=== PATIENT | male | born 1955 | race Caucasian/White ===

== ENCOUNTER → 2017-11-24 15:28 | Outpatient (CLI) | payer OTHER, SELFPAY ==
--- NOTE | 2017-11-24 15:35 | RAD_ITS ---
STUDY: X-RAY - SACRUM/COCCYX REASON FOR EXAM: Male, 62 years old. Pain after falling. TECHNIQUE: 3 view(s) of the sacrum and coccyx were obtained. COMPARISON: None. FINDINGS: Normal bilateral sacroiliac joints. Normal visualized sacral ala and fused sacral bodies. Normal sacrococcygeal junction with a normal angulation. Normal coccygeal segments. The presacral soft tissue structures are unremarkable. RAD/Sacrum-Coccyx min 2 Views IMPRESSION: Normal x-rays of the sacrum and coccyx. Electronically Signed: Jaki Dos Santos MD at 23:45 EDT , Service support ,
== END ==
PROVIDERS: Family Provider Family Medicine; PCP Family Medicine; Visit Provider Family Medicine
DX: S39.92XA Unspecified injury of lower back, initial encounter (principal)
CPT/HCPCS: 72220

== ENCOUNTER → 2018-04-06 07:19 | Outpatient (CLI) | payer BC, SELFPAY ==
[2018-04-06 10:23] LABS: PSA,Total - Annual Screen 0.24 ng/mL (0.00-4.00)
[2018-04-06 10:28] LABS: Hemoglobin A1c 6.2 % (4.2-6.3)
== END ==
PROVIDERS: Family Provider Family Medicine; PCP Family Medicine; Visit Provider Family Medicine
DX: I10 Essential (primary) hypertension (principal); E11.9 Type 2 diabetes mellitus without complications; Z12.5 Encounter for screening for malignant neoplasm of prostate
CPT/HCPCS: 36415; 83036; 84153; G0103

== ENCOUNTER 2018-05-13 22:20 | Emergency (ER) | payer BC, SELFPAY ==
[2018-05-13 22:21] VITALS: BP 161/70; PULSE 77; RESP 15; TEMP 36.8; BMI 47.3
--- NOTE | 2018-05-13 23:04 | EKG12_ITS ---
Test Reason : UPPER EXTREMITY Blood Pressure : / mmHG Vent. Rate : 076 BPM Atrial Rate : 076 BPM P-R Int : 256 ms QRS Dur : 128 ms QT Int : 396 ms P-R-T Axes : 018 -53 081 degrees QTc Int : 445 ms Sinus rhythm with 1st degree A-V block Left axis deviation Left ventricular hypertrophy with QRS widening and repolarization abnormality Cannot rule out Septal infarct , age undetermined Abnormal ECG Confirmed by DEVANTE LIU, YONY ([id number]), department editor NBA LOPEZ ([id number]) on 05/15/2018 3:43:33 PM Referred By: NIEVES Confirmed By:YONY LOW MD
[2018-05-13] MEDS: DiphenhydrAMINE 25 MG Capsule PO (23:31)
--- NOTE | 2018-05-14 00:24 | ED.DCSUM_ITS ---
- ER Visit Summary Date of Service: 05/14/18 Chief Complaint: Bee sting History of Present Illness: The patient is a 62 M presenting for evaluation after a bee sting. Patient reports that this afternoon he was stung in the left side of the chest by what he thought was a black wasp. Patient reports that he initially felt okay, and went on with the rest of his day after putting some ice over the area. He reports that this evening however he started to develop some pain that was going down his left arm. He reports that he had some generalized myalgias and a mild headache associated with this but denies any chest pain shortness of breath worsening with exertion or any other associated symptoms. He denies that he had any sort of prior allergies to bee stings. Review of systems otherwise negative. Physical Examination: Vital signs within normal limits. Well-nourished obese male no acute distress. Head normocephalic. Oropharynx clear no evidence of lip or tongue swelling, posterior oropharynx is normal. Neck is supple. Heart regular rate and rhythm with occasional extrasystoles. Lung sounds clear. Abdomen soft and nontender. Extremities were nontender to palpation with active full range of motion of the upper and lower extremities. 2+ radial pulses that are bilaterally symmetric, 2+ edema of the lower extremities bilaterally. Examination the patient's left chest shows about a 6 cm area of urticaria without any evidence of retained mouth parts. Test Results: EKG demonstrates sinus rhythm at 76 with first-degree AV block ID interval of 256. There is LVH morphology. No evidence of acute ischemia or arrhythmia. Emergency Department Course and Treatment: Patient presented for evaluation secondary to symptoms after bee sting. Due to the pain in his left arm there was at least a mild concern for the possibility of a cardiac equivalent so I performed an EKG, this was found to be within normal limits, I do not believe that further workup is necessary. Patient was given Benadryl repeat evaluation he had improvement. At this point I believe patient can safely be discharged. He will follow-up with primary care as needed. Disposition: Discharge Impression: 1. Localized reaction to bee sting This note was generated with [employer] software. It may contain incorrect words, spelling, and punctuation that were not noted in review of the chart prior to signing ED Disposition - Plan for ED Patient: Disposition: Home or Assisted Living Chief Complaint: Upper Extremity Injury Diagnosis: Bee sting Instructions: ED Bite Sting Insect Local Allergic React Referrals: Efrain Mccartney MD [Primary Care Provider] - As Needed
[2018-05-14 00:30] VITALS: PULSE 72; RESP 21; O2SAT 96
== END 2018-05-14 00:31 | disposition home or self-care (01) ==
PROVIDERS: Emergency Provider Emergency Medicine; Family Provider Family Medicine; PCP Family Medicine
DX: T63.441A Toxic effect of venom of bees, accidental (unintentional), initial encounter (principal); L50.0 Allergic urticaria; E66.9 Obesity, unspecified; E11.9 Type 2 diabetes mellitus without complications; I10 Essential (primary) hypertension; Z79.84 Long term (current) use of oral hypoglycemic drugs; Z79.82 Long term (current) use of aspirin; Z79.899 Other long term (current) drug therapy; Y92.89 Other specified places as the place of occurrence of the external cause
CPT/HCPCS: 93005; 99282

== ENCOUNTER 2018-09-02 14:03 | Emergency (ER) | payer BC, SELFPAY ==
[2018-09-02 14:04] VITALS: BP 158/85; PULSE 98; RESP 16; TEMP 35.9; O2SAT 95; BMI 47.3
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
== END 2018-09-02 16:16 | disposition home or self-care (01) ==
PROVIDERS: Emergency Provider Emergency Medicine; Family Provider Family Medicine; PCP Family Medicine
DX: S16.1XXA Strain of muscle, fascia and tendon at neck level, initial encounter (principal); S39.012A Strain of muscle, fascia and tendon of lower back, initial encounter; E11.9 Type 2 diabetes mellitus without complications; I10 Essential (primary) hypertension; Z79.82 Long term (current) use of aspirin; Z79.84 Long term (current) use of oral hypoglycemic drugs; Z79.899 Other long term (current) drug therapy; V43.52XA Car driver injured in collision with other type car in traffic accident, initial encounter; Y93.I9 Activity, other involving external motion; Y92.410 Unspecified street and highway as the place of occurrence of the external cause; Y99.8 Other external cause status
CPT/HCPCS: 72040; 72100; 99282

== ENCOUNTER → 2018-11-22 07:35 | Outpatient (CLI) | payer BC, SELFPAY ==
[2018-11-22 10:03] LABS: Absolute Lymphocyte Count 2.62 X10^3/ul (0.83-4.51); Absolute Neutrophil Count 4.8 X10^3/uL (2.0-7.7); Basophil# 0.04 X10^3/uL; Basophil% 0.5 % (0-1); Color, Urine Yellow (Yellow); Eosinophil# 0.19 X10^3/uL; Eosinophils% 2.3 % (0-5); Glucose, Dipstick Normal (Normal); Hematocrit 39.4 % (40-54); Hemoglobin 13.6 g/dl (13.0-16.5); Ketone-Dipstick 5 mg/dl (Negative); Leukocyte Esterase-Dipstick 25 /ul (Negative); Lymphocyte # 2.62 X10^3/ul (4.0); Lymphocyte % 31.8 % (19-41); Mean Corp Hgb Conc 34.5 g/gl (32-36); Mean Corpuscular Hgb 30.6 pg (27.0-32.0); Mean Corpuscular Volume 88.5 fL (80-94); Monocyte# 0.63 X10^3/uL; Monocyte% 7.6 % (0-10); Neutrophil # 4.75 X10^3/uL (2.7-7.7); Neutrophil % 57.6 % (47-70); Nitrite-Dipstick Negative (Negative); Occult Blood-Urine Negative /ul (Negative); Platelet Count 237 K/mm3 (150-450); Protein-Dipstick 30 mg/dl (Negative); RBC Distribution Width SD 41.7 fl (35.1-43.9); Red Blood Count 4.45 M/mm3 (4.6-6.2); Urine Bilirubin Dipstick 1 mg/dL (Negative); Urine Clarity Sl. Cloudy (Clear); Urine Urobilinogen 1 mg/dl (Normal); White Blood Count 8.3 K/mm3 (4.4-11.0)
[2018-11-22 10:04] LABS: POSITIVE COUNT NO; POSITIVE DIFFERENTIAL NO; POSITIVE MORPHOLOGY NO
[2018-11-22 10:27] LABS: ALB/GLOB Ratio 0.8 RATIO (0.9-2.4); AST(SGOT) 21 U/L (15-37); Alanine Aminotransfer ALT/SGPT 41 U/L (16-61); Albumin, Serum 3.4 g/dL (3.2-5.0); Alkaline Phosphatase 73 U/L (45-117); Anion Gap 8 (5-15); BUN 11 mg/dL (7-18); BUN/Creat Ratio 12.5 RATIO (10-20); Calcium,Total 8.5 mg/dL (8.5-10.1); Chloride 104 mmol/L (98-107); Cholesterol 141 mg/dL (200); Creatinine, Serum 0.88 mg/dL (0.70-1.30); EST Glomerular Filtration Rate 93 mL/min (>60); Est Glom Filt Rate - Afr Amer 113 mL/min (>60); Glucose 134 mg/dL (74-106); High Density Lipoprotein 38 mg/dL; PSA,Total - Annual Screen 0.22 ng/mL (0.00-4.00); Potassium 3.8 mmol/L (3.5-5.1); Protein, Total 7.4 g/dL (6.4-8.2); Sodium Level 138 mmol/L (136-145); Triglycerides 125 mg/dL; Very Low Density Lipoprotein 25 mg/dL (5-40)
[2018-11-22 12:28] LABS: Hemoglobin A1c 6.7 % (4.2-6.3)
== END ==
PROVIDERS: Family Provider Family Medicine; PCP Family Medicine; Referring Provider Family Medicine; Visit Provider Family Medicine
DX: Z00.00 Encounter for general adult medical examination without abnormal findings (principal); I10 Essential (primary) hypertension; E11.9 Type 2 diabetes mellitus without complications; Z12.5 Encounter for screening for malignant neoplasm of prostate
CPT/HCPCS: 36415; 80053; 80061; 81002; 83036; 84153; 85025; G0103

== ENCOUNTER 2018-12-29 21:40 | Emergency (ER) | payer BC, SELFPAY ==
[2018-12-29 21:42] VITALS: BP 137/80; PULSE 110; RESP 28; TEMP 36.9; O2SAT 99; BMI 47.5
--- NOTE | 2018-12-29 21:50 | ED.RN ---
RN CALLED FOR EKG, PULLED OLD EKGS FOR
--- NOTE | 2018-12-29 21:51 | ED.RN ---
notified riya of pt condition per pt request. riya states she is on her way up to the er
[2018-12-29 22:00] VITALS: BP 137/80; PULSE 89; RESP 24; O2SAT 100
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
--- NOTE | 2018-12-29 22:03 | EKG12_ITS ---
Test Reason : SEIZURE Blood Pressure : / mmHG Vent. Rate : 101 BPM Atrial Rate : 101 BPM P-R Int : 232 ms QRS Dur : 110 ms QT Int : 338 ms P-R-T Axes : 037 -50 090 degrees QTc Int : 438 ms Sinus tachycardia with 1st degree A-V block with occasional Premature ventricular complexes Left anterior fascicular block T wave abnormality, consider lateral ischemia Abnormal ECG Confirmed by DEVANTE LIU, YONY ([id number]), features editor TRISTAN FLORES () on 01/02/2019 1:19:56 PM Referred By: CAR[place] Confirmed By:YONY LOW MD
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
[2018-12-29 23:05] LABS: Absolute Lymphocyte Count 1.77 X10^3/ul (0.83-4.51); Absolute Neutrophil Count 11.9 X10^3/uL (2.0-7.7); Basophil# 0.03 X10^3/uL; Basophil% 0.2 % (0-1); Eosinophil# 0.09 X10^3/uL; Eosinophils% 0.6 % (0-5); Hematocrit 35.6 % (40-54); Hemoglobin 12.6 g/dl (13.0-16.5); Lymphocyte # 1.77 X10^3/ul (4.0); Lymphocyte % 12.1 % (19-41); Mean Corp Hgb Conc 35.4 g/gl (32-36); Mean Corpuscular Hgb 30.7 pg (27.0-32.0); Mean Corpuscular Volume 86.6 fL (80-94); Mean Platelet Vol. 8.9 fl (6.2-12.0); Monocyte% 5.5 % (0-10); Neutrophil # 11.91 X10^3/uL (2.7-7.7); Neutrophil % 81.3 % (47-70); Platelet Count 201 K/mm3 (150-450); RBC Distribution Width CV 12.9 % (11.6-14.6); RBC Distribution Width SD 40.8 fl (35.1-43.9); Red Blood Count 4.11 M/mm3 (4.6-6.2); White Blood Count 14.7 K/mm3 (4.4-11.0)
[2018-12-29 23:06] LABS: POSITIVE COUNT NO; POSITIVE DIFFERENTIAL NO; POSITIVE MORPHOLOGY NO
[2018-12-29 23:11] LABS: Partial Thromboplast Time 23.8 Seconds (24.1-36.2)
[2018-12-29 23:11] LABS: Bacteria 0 SEEN /hpf (None Seen); White Blood Cells 0 SEEN /hpf (0-5)
[2018-12-29 23:15] LABS: Color, Urine Yellow (Yellow); Glucose, Dipstick Normal (Normal); Ketone-Dipstick 5 mg/dl (Negative); Leukocyte Esterase-Dipstick Negative /ul (Negative); Nitrite-Dipstick Negative (Negative); Occult Blood-Urine 10 /ul (Negative); Protein-Dipstick 30 mg/dl (Negative); Urine Bilirubin Dipstick Negative (Negative); Urine Clarity Sl. Cloudy (Clear); Urine Urobilinogen Normal (Normal)
[2018-12-29 23:17] VITALS: BP 125/75; PULSE 71; RESP 18; O2SAT 97
[2018-12-29 23:21] LABS: Amorphous Sediment 1+
[2018-12-29 23:22] LABS: Hyaline Cast 0-5 SEEN /lpf (0-5); Mucous, Urine 1+ /hpf (<or=2+); Red Blood Cells-Urine 0-5 SEEN /hpf (0-5)
[2018-12-29 23:23] LABS: Squamous Epithelial Cells - UA 0-5 SEEN /hpf (0-5)
[2018-12-29 23:42] LABS: AST(SGOT) 38 U/L (15-37); Alanine Aminotransfer ALT/SGPT 43 U/L (16-61); Albumin, Serum 3.4 g/dL (3.2-5.0); Alkaline Phosphatase 73 U/L (45-117); Anion Gap 7 (5-15); BUN 10 mg/dL (7-18); Calcium,Total 8.1 mg/dL (8.5-10.1); Chloride 103 mmol/L (98-107); Creatinine, Serum 0.91 mg/dL (0.70-1.30); EST Glomerular Filtration Rate 90 mL/min (>60); Est Glom Filt Rate - Afr Amer 109 mL/min (>60); Globulin 3.4 g/dL (2.2-4.2); Glucose 189 mg/dL (74-106); Potassium 4.2 mmol/L (3.5-5.1); Protein, Total 6.8 g/dL (6.4-8.2); Sodium Level 136 mmol/L (136-145)
[2018-12-29 23:43] LABS: Lactic Acid 2.8 mmol/L (0.4-2.0)
--- NOTE | 2018-12-29 23:44 | ED.RN ---
lab called with critical lab results. Lactic acid 2.8. Dr. Aguilar made aware no new orders at this time
[2018-12-29] MEDS: levETIRAcetam IV 1,000 MG/100 ML BAG 400 MG IV (23:56)
[2018-12-29 23:59] VITALS: BP 127/72; PULSE 62; RESP 18; O2SAT 100
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
[2018-12-30 00:46] VITALS: BP 127/72; PULSE 69; RESP 18; TEMP 36.7; O2SAT 100
[2018-12-30] MEDS: 0.9% Normal Saline 1,000 ML 1000 ML IV (00:47)
[2018-12-30 03:14] LABS: Reflex Lactate? Y
== END 2018-12-30 01:33 | disposition short-term general hospital (02) ==
PROVIDERS: Emergency Provider Emergency Medicine; Family Provider Family Medicine; PCP Family Medicine
DX: G93.89 Other specified disorders of brain (principal); G40.409 Other generalized epilepsy and epileptic syndromes, not intractable, without status epilepticus; E66.9 Obesity, unspecified; E11.9 Type 2 diabetes mellitus without complications; I10 Essential (primary) hypertension; Z79.84 Long term (current) use of oral hypoglycemic drugs; Z79.899 Other long term (current) drug therapy
CPT/HCPCS: 70450; 71045; 80053; 81001; 83605; 84484; 85025; 85610; 85730; 93005; 96361; 96365; 99285; J7030; A4216

== ENCOUNTER 2019-03-15 09:18 | Outpatient (RCR) | payer BC, SELFPAY ==
[2019-03-15 10:13] VITALS: BP 140/77; PULSE 77; RESP 18; TEMP 36.6; BMI 44.1
--- NOTE | 2019-03-15 10:51 | PCM.WC.HP ---
(1) Lymphedema Status: Chronic Current Visit: Yes Code(s): I89.0 - Lymphedema, not elsewhere classified (2) Type 2 diabetes mellitus Status: Acute Current Visit: Yes Code(s): E11.9 - Type 2 diabetes mellitus without complications History of Present Illness Date of Service: 03/15/19 Chief Complaint: Bilateral lower extremity lymphedema History of Wound: Mr. Rabago is here for management of his bilateral lower extremity lymphedema. Chronic history of lymedema and has been utilizing his compression stockings however admits that he is not as compliant. He sits/stands for long hours at a time. No open wounds or ulcers at this time. He was referred here by his primary care physicain for short term compression managemt. Past Medical History Past Medical History: Chronic Problems Lymphedema (Chronic) Surgical History: tonsillectomy Allergies/Adverse Reactions: Allergies ciprofloxacin [From Cipro] Adverse Reaction (Verified 12/29/18 21:49) Itching Home Medications: Ambulatory Orders Medication Instructions Recorded Aspirin [Aspirin, Baby] 81 mg PO DAILY 04/08/15 Losartan/Hydrochlorothiazide 1 tab PO DAILY 04/08/15 [Hyzaar 100-25 Tablet] Metoprolol Succinate [Toprol Xl] 50 mg PO DAILY 05/13/18 Sitagliptin Phos/Metformin HCl 50 mg PO QHS 05/13/18 [Janumet 50-500 mg Tablet] - Family History Maternal No pertinent history Smoking Status: Never smoker Review of Systems Constitutional: Denies: Anorexia, Chills, Fever Eyes: Denies: Blurred vision, Pain, Redness HEENT: Denies: Difficulty Hearing, Difficulty Swallowing Cardiovascular: Denies: Chest Pain, Chest Pressure Respiratory: Denies: Hemoptysis Gastrointestinal: Denies: Abdominal Pain, Hematemesis, Vomiting Skin: Denies: Jaundice - Physical Exam Vital Signs Temp Pulse Resp BP 97.8 F 77 18 140/77 H 03/15/19 10:13 03/15/19 10:13 03/15/19 10:13 03/15/19 10:13 General: Alert, Oriented x3, Cooperative, No apparent distress HEENT: Atraumatic, Normocephalic Oral: Moist Mucosa Neck: Supple Lungs: Normal air movement Cardiovascular: Regular rate, Regular Rhythm, Normal S1, Normal S2 Abdomen: Soft, Non Tender, Obese Extremities: No cyanosis Wound Measurements and Assessment WC - Nurse 1 - General Ulcer Measurement Start: 03/15/19 10:10 Freq: Status: Active Protocol: Activity Type Activity Date Activity User E-Sign Co-Sign Detail Recorded Client Recorded Date Recorded By Document 03/15/19 10:13 [id number] 03/15/19 10:25 03/15/19 10:13 Wound Center Nurse 1 [Edema Assessment] -Lower Limb Edema Present Yes -Right Calf (cm) 47.0 -Right Ankle (cm) 31.0 -Left Calf (cm) 49.2 -Left Ankle (cm) 35.5 Musculoskeletal: No Muscle Wasting Neurological: Cranial nerves II-XII grossly intact Psych/Mental Status: Normal Affect Debridement Note No debridement was completed today Assessment/Plan Active Problems Lymphedema (Chronic) Type 2 diabetes mellitus (Acute) Assessment: Same as above. Plan: No debridement completed today. No open wound/ulcer. Chronic lyphedema. Not very compliant with his ocmpression stockings because he says he does not want it to cut his circulaion. Has not been to a lymph edema clinic in the past. Advised that lomg term, this would be a better option for him. Also recommended Circaids for better ease of use, he is open to this. 3M wraps applied today. leave on for a week. Continue Diabetic foot care and optimal diabetes control. Elevate lower extremities when seated and in bed. Exercise and amie loss also beneficial to management. All his questions were answered and he was advised to call with any further questions or concerns.
== END 2019-03-28 23:59 ==
LOC: WC 09:18
PROVIDERS: Family Provider Family Medicine; PCP Family Medicine; Visit Provider Internal Medicine
DX: I89.0 Lymphedema, not elsewhere classified (principal); E11.9 Type 2 diabetes mellitus without complications
CPT/HCPCS: 29581; 99213; G0463

== ENCOUNTER 2019-03-23 16:49 | Emergency (ER) | payer BC, SELFPAY ==
[2019-03-23 16:51] VITALS: BP 126/64; PULSE 89; RESP 16; TEMP 36.7; O2SAT 97; BMI 44.4
--- NOTE | 2019-03-23 17:04 | ED.VISSUMM ---
- ER Visit Summary Date of Service: 03/23/19 Chief Complaint: Left lower rib pain History of Present Illness: The patient is a 63 M who has left lower rib pain. He jumped off of a trailer about 12 to 18 inches. He states he continued rolling forward in his left arm got caught underneath him. He now has pain in the left lower rib. Denies any head trauma or LOC. Nothing makes the pain better or worse. He took no medications for this at home. Denies any other injuries. Physical Examination: Vital signs reviewed. HEENT exam atraumatic. Heart is regular rate rhythm. Lungs are clear to auscultation bilaterally. His chest is mildly tender in the left lower rib area. There are no step-offs. Abdomen soft nontender. Neurologic exam normal. Test Results: Left rib x-rays are normal per radiology Emergency Department Course and Treatment: Patient declined any pain medications. X-rays are negative for fractures. Patient will ice and use Tylenol for pain at home. He will follow-up with his Treatment Plan: [] Disposition: Discharge Impression: Left rib contusion This note was generated with [employer] dictation software. It may contain incorrect words, spelling, and punctuation that were not noted in review of the chart prior to signing ED Disposition - Plan for ED Patient: Referrals: Efrain Mccartney MD [Primary Care Provider] -
--- NOTE | 2019-03-23 17:20 | RAD_ITS ---
STUDY: X-RAY - UNILATERAL RIBS ( LEFT ) WITH CHEST REASON FOR EXAM: Male, 63 years old. Fall, chest pain. TECHNIQUE - RIBS: 4 view(s) of the ribs. TECHNIQUE - CHEST: Single PA view of the chest. COMPARISON: 12/29/2018 FINDINGS - RIBS: Normal visualized ribs without a demonstrated fracture. FINDINGS - CHEST: The lungs are clear and expanded. There is no demonstrated pleural abnormality. Normal size heart. Normal mediastinum and sid. Normal visualized pulmonary arteries. Normal visualized aortic arch and descending thoracic aorta. Normal visualized thoracic spine. Normal visualized ribs, clavicles, and shoulders. There is no demonstrated abnormality of the visualized soft tissue structures of the upper abdomen. RAD/Ribs Uni Min 3V w/PA Chest IMPRESSION: RIBS: Normal x-ray examination of the ribs. CHEST: Normal x-ray examination of the chest. Electronically Signed: Costa Rivers MD at 17:44 EDT Tel , Service support ,
--- NOTE | 2019-03-23 17:58 | ED.DEP ---
ED Disposition - Plan for ED Patient: Disposition: Home or Assisted Living Instructions: Rib Contusion Referrals: Efrain Mccartney MD [Primary Care Provider] -
[2019-03-23 18:13] VITALS: BP 117/67; PULSE 63; RESP 16; O2SAT 97
== END 2019-03-23 18:14 | disposition home or self-care (01) ==
PROVIDERS: Emergency Provider Emergency Medicine; Family Provider Family Medicine; PCP Family Medicine
DX: S20.212A Contusion of left front wall of thorax, initial encounter (principal); W17.89XA Other fall from one level to another, initial encounter; Y93.89 Activity, other specified; Y92.89 Other specified places as the place of occurrence of the external cause; Y99.8 Other external cause status
CPT/HCPCS: 71101; 99282

== ENCOUNTER 2019-06-01 10:55 | Outpatient (RCR) | payer BC, SELFPAY ==
[2019-03-29 01:15] VITALS: TEMP 36.6
[2019-06-01 11:23] VITALS: BP 143/76; PULSE 65; RESP 16; BMI 45.1
--- NOTE | 2019-06-01 12:44 | PCM.WC.HP ---
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 Rabago is here for management of his bilateral lower extremity lymphedema. Chronic history of lymedema and has been unable to fit into his compression stockings. Patient is noncompliant and is here only to get his 3M wraps on his legs but he never follows up. Patient was seen approximately [address] Huitron and never returned and refused to follow-up with the lymphedema clinic. No open wounds or ulcers at this time. He was referred here by his primary care physicain for short term compression managemt. Past Medical History Past Medical History: Chronic Problems Lymphedema (Chronic) Surgical History: tonsillectomy Allergies/Adverse Reactions: Allergies ciprofloxacin [From Cipro] Adverse Reaction (Verified 06/01/19 11:45) Itching Home Medications: Ambulatory Orders Medication Instructions Recorded Losartan/Hydrochlorothiazide 1 tab PO DAILY 04/08/15 [Hyzaar 100-25 Tablet] Sitagliptin Phos/Metformin HCl 2 tablet PO QHS 05/13/18 [Janumet 50-500 mg Tablet] Dexamethasone 12 mg PO DAILY 03/23/19 Metformin HCl 500 mg PO DAILY 03/23/19 levETIRAcetam tablet [Keppra 1,000 mg PO BID 03/23/19 tablet] - Family History Maternal No pertinent history Smoking Status: Never smoker Review of Systems Constitutional: Denies: Chills, Fever Eyes: Denies: Blurred vision, Drainage, Pain HEENT: Denies: Difficulty Hearing, Difficulty Swallowing, Sore Throat, Visual Changes Cardiovascular: Denies: Chest Pain, Palpitations, Syncope Respiratory: Denies: Cough, Shortness of Breath Gastrointestinal: Denies: Abdominal Pain, Nausea, Vomiting Genitourinary: Denies: Dysuria, Frequency Musculoskeletal: Denies: Joint Pain, Muscle pain Skin: Denies: Jaundice, Rash Neurological: Denies: Balance problems, Change in Speech, Difficulty swallowing, Focal weakness Psychiatric: Denies: Anxiety, Depression Endocrine: Denies: Change in Body Habitus Hematologic/ Lymphatic: Denies: Adenopathy - Physical Exam Vital Signs Pulse Resp BP 65 16 143/76 H 06/01/19 11:23 06/01/19 11:23 06/01/19 11:23 General: Oriented x3, Cooperative, Well developed HEENT: Atraumatic, PERRLA Oral: Moist Mucosa Neck: Supple, No JVD Lungs: Clear to auscultation, Normal air movement Cardiovascular: Regular rate, Regular Rhythm Abdomen: Bowel Sounds Present, Soft, Non Tender, No Hepato-splenomegaly Extremities: No clubbing, Edema Skin: No rashes, No breakdown Wound Measurements and Assessment WC - Nurse 1 - General Ulcer Measurement Start: 06/01/19 11:17 Freq: Status: Active Protocol: Activity Type Activity Date Activity User E-Sign Co-Sign Detail Recorded Client Recorded Date Recorded By Document 06/01/19 11:23 BM [id number] 06/01/19 11:33 [facility] 06/01/19 11:23 Wound Center Nurse 1 [Edema Assessment] -Lower Limb Edema Present Yes -Right Calf (cm) 48 -Right Ankle (cm) 33.3 -Left Calf (cm) 50.9 -Left Ankle (cm) 36.6 WC - Nurse 2 - General Ulcer CM Notes Start: 06/01/19 11:17 Freq: Status: Active Protocol: Activity Type Activity Date Activity User E-Sign Co-Sign Detail Recorded Client Recorded Date Recorded By Document 06/01/19 11:57 MW [id number] 06/01/19 11:58 MW 06/01/19 11:57 Pain Scale: 0-10 Numeric [Pain] -Is Patient Pain Free? Yes Musculoskeletal: No Tenderness to Palpation of Joints or Extremities Lymphatic: No Cervical, Supraclavicular, or Inguinal Adenopathy Neurological: Cranial nerves II-XII grossly intact, Neuro grossly intact Psych/Mental Status: Normal Affect, Appropriate Debridement Note Post-Debridement Measurements/Treatment WC - Nurse 2 - General Ulcer CM Notes Start: 06/01/19 11:17 Freq: Status: Active Protocol: Activity Type Activity Date Activity User E-Sign Co-Sign Detail Recorded Client Recorded Date Recorded By Document 06/01/19 11:57 MW [id number] 06/01/19 11:58 MW 06/01/19 11:57 Pain Scale: 0-10 Numeric Is Patient Pain Free? Yes No debridement was completed today Assessment/Plan Active Problems Type 2 diabetes mellitus (Acute) Assessment: Same as above. Plan: No debridement completed today. No open wound/ulcer. Chronic lyphedema. Not very compliant with his ocmpression stockings because he says he does not want it to cut his circulaion. Has not been to a lymph edema clinic in the past. Advised that lomg term, this would be a better option for him. Also recommended Circaids for better ease of use, he is open to this. Dylan wraps applied today. Follow-up with the lymphedema clinic and advised that we do not see lymphedema only if they have wounds.
== END 2019-06-28 23:59 ==
LOC: WC 10:55
PROVIDERS: Family Provider Family Medicine; PCP Family Medicine; Visit Provider Nurse Practitioner
DX: I89.0 Lymphedema, not elsewhere classified (principal); E11.9 Type 2 diabetes mellitus without complications; Z91.19 Patient's noncompliance with other medical treatment and regimen; Z79.899 Other long term (current) drug therapy; Z79.84 Long term (current) use of oral hypoglycemic drugs
CPT/HCPCS: 99213; G0463

== ENCOUNTER 2019-06-05 07:14 | Emergency (ER) | payer BC, SELFPAY ==
[2019-06-05 07:15] VITALS: BP 124/71; PULSE 64; RESP 18; TEMP 36.6; O2SAT 97; BMI 48.4
--- NOTE | 2019-06-05 07:32 | MRI_ITS ---
STUDY: MRI BRAIN WITH AND WITHOUT CONTRAST REASON FOR EXAM: Male, 63 years old. Left leg weakness upon waking this morning. History of brain tumor removal on 01/05/2019. TECHNIQUE: Standardized multiplanar fat and water weighted pulse sequences were obtained. IV Dotarem 30 was administered for the contrast portion of the examination. Motion degradation artifacts in several of the images due to patient's inability to cooperate. COMPARISON: Preoperative CT head scan 12/29/2018. No prior pre and postoperative MRI brain scans for comparison. No prior postop CT head scan for comparison. FINDINGS: Interval left craniotomy. Large rim enhancing mass along the inferior horn of the right lateral ventricle and extending laterally into the enhancing jefferson of the surgical cavity of the right temporal lobe. There is moderate amount of surrounding vasogenic edema involving the right temporal lobe, right occipital lobe and right parietal lobe. There is approximately 8.3 mm right the left midline shift of the septum pellucidum. There is minimal downward transtentorial herniation into the right posterior ambient wing cistern. This accounts for the mild deformity of the right lateral surface of the midbrain. The vasogenic edema extends across the splenium of the corpus callosum. No communicating or noncommunicating hydrocephalus. Normal bilateral basal ganglia. Normal thalami. There is no extra-axial fluid accumulation. Normal flow voids within the major intracranial circulation suggesting patency by spin echo criteria. Normal venous enhancement. Normal sella turcica, pituitary gland, infundibular stalk, optic chiasm and hypothalamus. Normal tectal plate and pineal gland. Minimal deformity in the right lateral surface of the midbrain due to mild transtentorial herniation and surrounding fascial edema. Normal yaneth and medulla. Normal cerebellum. Normal remaining basal cisterns. Normal bilateral temporal bones. Normal bilateral internal auditory canals. No demonstrated orbital abnormality, within the constraints of a routine brain study. Normal visualized paranasal sinuses. Right craniotomy defect. Normal skull base. Normal visualized soft tissue structures. Normal visualized upper cervical spine. MRI/Brain W/WO Contrast IMPRESSION: 1. Very large rim-enhancing mass occupying the inferior horn of right lateral ventricle and extending laterally to the rim-enhancing jefferson of the surgical cavity in the right temporal lobe with extensive surrounding vasogenic edema. The vasogenic edema also extends across the splenium of the corpus callosum. This is from known malignant brain neoplasm. Please correlate with the pathology report for exact type of brain neoplasm since there has been interval brain surgery. 2. Progression of right brain neoplasm when compared to preoperative CT head scan of 12/29/2018. Postop interval changes cannot be determined without postop MRI head scans for comparison. 3. 8.3 mm right to left midline shift and minimal downward transtentorial herniation causing deformity of the right ambient wing cistern and deformity in the right lateral surface of the midbrain. Electronically Signed: Curtis Lagunas MD at 10:10 EDT , Service support ,
--- NOTE | 2019-06-05 07:32 | ED.RN ---
SLIGHT LEFT FACIAL DROOP NOTED IN SMILE. STATES SHE ALWAYS THROUGHT HIS SMILE WAS A LITTLE OFF BUT NOT SURE OF IT IS NEW OR MORE. HOWEVER REPORTS NOTICED LEFT EYE MORE SQUEENTY THAN NORMAL FOR LAST FEW DAYS. BRAIN TUMOR ON RIGHT SIDE BRAIN. ABLE TO LIFT LEFT LEG AGAINST GRAVITY BUT DOES HAVE SOME DROP WITHIN [address] BASURTO AT BEDSIDE.
--- NOTE | 2019-06-05 07:34 | ED.RN ---
PT REPORTS HAVING LUCAS YESTERDAY BUT WENT AWAY
[2019-06-05] MEDS: diazePAM 5 MG Tablet PO (07:38)
--- NOTE | 2019-06-05 07:43 | ED.DCSUM_ITS ---
History of Present Illness Chief Complaint: Lower Extremity Injury Detail of Chief Complaint: Left leg weakness Informant: Patient, Family Onset: Today Current Severity: Mild Maximum Severity: Moderate Narrative: Patient presents with weakness of the left leg. He states he attempted to get up this morning and felt like his left leg just gave out on him. 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 His oncologist is Dr. Ferguson in [place]. states she spoke to Dr. Ferguosn this morning who wanted him to come to [place] to get an MRI. was unable to get the patient in the car so EMS was called and patient was transported to [place]. Patient does state he had a headache last evening which is not typical for him. He denies pain at this time. - Past Medical History (1) Brain tumor Status: Acute (2) Type 2 diabetes mellitus Status: Acute (3) Lymphedema Status: Chronic Past Medical History - Allergies and Home Meds Allergies/Adverse Reactions: Allergies ciprofloxacin [From Cipro] Adverse Reaction (Verified 06/05/19 07:21) Itching Primary Care Physician: Efrain Mccartney MD [Primary Care Provider] - Prior records reviewed: Yes Past Medical History: - - Reviewed Surgical History: tonsillectomy Lives: Spouse/ Significant Other Smoking Status: Never smoker - Family History Maternal Family History: Reports: No pertinent history Review of Systems General: Denies: Chills, Fever Eyes: Denies: Visual changes - bilaterally ENT: Denies: Bilateral ear pain Cardiovascular: Denies: Chest pain, Palpitations Respiratory: Denies: Dyspnea, Cough Gastrointestinal: Denies: Abdominal pain, Nausea, Vomiting Musculoskeletal: Denies: Neck pain, Back pain, Extremity Pain Skin: Denies: Rash Neurological: Reports: Weakness, - - Headache last evening, currently resolved. Denies: Headache Hematologic: Denies: Easy bruising Allergy: Denies: Uticaria Physical Exam Vital Signs/Narrative: Vital Signs Temp Pulse Resp BP Pulse Ox 06/05/19 07:15 97.8 F 64 18 124/71 H 97 Inital Vital Signs reviewed: Yes General: Well nourished, Well developed Head: Normocephalic ENT: Moist mucous membranes Neck: Supple Cardiovascular: Regular rate, Regular rhythm Respiratory: No distress, CTA bilaterally Abdomen: Soft, Nontender Back: Nontender Extremities: Nontender Skin: Normal color, No rash Neurological: Alert, Oriented x3, - - On my exam patient appears to have a slight left facial droop. states she has noticed that his left eye seems to be more squinting recently. He has mild left leg weakness with his leg falling to the bed before the count of 5, but he is able to hold his leg up. He has normal sensation and strong distal pulses. Psychological: Normal affect Diagnostic/Tx/Re-eval Impressions Brain MRI 06/05/19 07:32 IMPRESSION: 1. Very large rim-enhancing mass occupying the inferior horn of right lateral ventricle and extending laterally to the rim-enhancing jefferson of the surgical cavity in the right temporal lobe with extensive surrounding vasogenic edema. The vasogenic edema also extends across the splenium of the corpus callosum. This is from known malignant brain neoplasm. Please correlate with the pathology report for exact type of brain neoplasm since there has been interval brain surgery. 2. Progression of right brain neoplasm when compared to preoperative CT head scan of 12/29/2018. Postop interval changes cannot be determined without postop MRI head scans for comparison. 3. 8.3 mm right to left midline shift and minimal downward transtentorial herniation causing deformity of the right ambient wing cistern and deformity in the right lateral surface of the midbrain. Electronically Signed: Curtis Lagunas MD at 10:10 EDT , Service support , 06/05/19 07:32 MRI Brain [Brain W/WO Contrast] [MRI] Stat Laboratory Results 06/05/19 06/05/19 07:45 07:45 WBC 7.3 RBC 4.23 L Hgb 13.2 Hct 39.1 L MCV 92.4 MCH 31.2 MCHC 33.8 RDW Std Deviation 45.1 H RDW Coeff of Miranda 13.7 Plt Count 163 MPV 8.2 Immature Gran % (Auto) 1.000 H Neut % (Auto) 73.4 H Lymph % (Auto) 14.5 L Haskell % (Auto) 9.7 Eos % (Auto) 1.0 Baso % (Auto) 0.4 Absolute Neuts (auto) 5.4 Absolute Lymphs (auto) 1.06 Nucleated RBC % 0 Sodium 139 Potassium 3.6 Chloride 105 Carbon Dioxide 31.0 Anion Gap 3 L BUN 16 Creatinine 0.82 Estim Creat Clear Calc 96.44 Est GFR (MDRD) Af Amer 122 Est GFR (MDRD) Non-Af 101 BUN/Creatinine Ratio 19.6 Glucose 106 Calcium 8.6 - Medical Decision Making Test results were discussed with the patient's oncologist, Dr. Holland. She asked that we give the patient 10 mg of IV Decadron and transfer the patient to the hospitalist service at [facility]. Family has been updated and is in agreement. ED Disposition - Plan for ED Patient: Disposition: [facility] Diagnosis: Brain tumor, Vasogenic edema Referrals: Efrain Mccartney MD [Primary Care Provider] -
[2019-06-05 07:55] LABS: Absolute Lymphocyte Count 1.06 X10^3/uL (0.83-4.51); Absolute Neutrophil Count 5.4 X10^3/uL (2.0-7.7); Basophil# 0.03 X10^3/uL; Basophil% 0.4 % (0-1); Eosinophil# 0.07 X10^3/uL; Hematocrit 39.1 % (40-54); Hemoglobin 13.2 g/dL (13.0-16.5); Lymphocyte # 1.06 X10^3/ul (4.0); Lymphocyte % 14.5 % (19-41); Mean Corp Hgb Conc 33.8 g/dL (32-36); Mean Corpuscular Hgb 31.2 pg (27.0-32.0); Mean Corpuscular Volume 92.4 fL (80-94); Mean Platelet Vol. 8.2 fl (6.2-12.0); Monocyte# 0.71 X10^3/uL; Monocyte% 9.7 % (0-10); NRBC Flagged by Analyzer 0 % (0-5); Neutrophil # 5.37 X10^3/uL (2.7-7.7); Neutrophil % 73.4 % (47-70); Platelet Count 163 K/mm3 (150-450); RBC Distribution Width CV 13.7 % (11.6-14.6); RBC Distribution Width SD 45.1 fl (35.1-43.9); Red Blood Count 4.23 M/mm3 (4.6-6.2); White Blood Count 7.3 K/mm3 (4.4-11.0)
[2019-06-05 08:05] LABS: Anion Gap 3 (5-15); BUN 16 mg/dL (7-18); BUN/Creat Ratio 19.6 RATIO (10-20); Calcium,Total 8.6 mg/dL (8.5-10.1); Chloride 105 mmol/L (98-107); Creatinine, Serum 0.82 mg/dL (0.70-1.30); EST Glomerular Filtration Rate 101 mL/min (>60); Est Glom Filt Rate - Afr Amer 122 mL/min (>60); Estimated Creatinine Clearance 96.44 ml/min; Glucose 106 mg/dL (74-106); Potassium 3.6 mmol/L (3.5-5.1); Sodium Level 139 mmol/L (136-145)
[2019-06-05 09:43] VITALS: BP 125/71; PULSE 59; RESP 18; O2SAT 97
[2019-06-05] MEDS: dexAMETHasone 10 MG/ML Vial IV (11:17)
[2019-06-05 13:20] VITALS: BP 119/78; PULSE 69; RESP 16; O2SAT 96
[2019-06-05 17:25] VITALS: BP 132/98; PULSE 57; RESP 18; TEMP 35.8; O2SAT 97
== END 2019-06-05 16:50 | disposition short-term general hospital (02) ==
PROVIDERS: Emergency Provider Emergency Medicine; Family Provider Family Medicine; PCP Family Medicine
DX: G93.6 Cerebral edema (principal); D49.6 Neoplasm of unspecified behavior of brain; E11.9 Type 2 diabetes mellitus without complications; Z79.84 Long term (current) use of oral hypoglycemic drugs
CPT/HCPCS: 70553; 80048; 85025; 96374; 99285; A9575; A4216

== ENCOUNTER 2019-07-03 09:06 | Outpatient (RCR) | payer BC, SELFPAY ==
--- NOTE | 2019-07-03 15:37 | HP.OTEVAL_ITS ---
Patient's Visit Information JEANNA SPARKS is a 63 year old M, referred to Occupational Therapy by Nuha Rousseau NP-Georges, with a diagnosis of BLE lymphedema. Date of Evaluation: 07/03/19 Occupational Therapist: Madeleine Herrera, ALICIAR/Ronald, CHT - Subjective Subjective: This 63 year old male was seen for OT for LE lymphedema. pt states he feels he has had swelling in LE for about 7-10 years. pt reports he has been at wound center x2 and he has had good results pt states he does have compression socks but they are 15-20mmHg. Pt states his legs do not reduce in size when he is sleeping. - Lymphedema (Circumferential Measure) Mid-foot: right 30cm left 32cm Ankle: right 37cm left 38cm Lower calf: right 54cm left 55cm Largest calf: right 54cm left 56cm Below knee: right 49cm left 51cm - Sensation Sensation Comments: denies - Lower Limb Functional Index Lower Extremity Functional Score: 48 - Goals Demonstrate a 20% reduction in edema by d/c: Yes Demonstrate adequate knowledge of self-massage by 2nd week: Yes Demonstrate adequate knowledge skin care/prec by 2nd week: Yes Demonstrate adequate knowledge therapeutic exercises by d/c: Yes Select approp compression garment w/donning/care/wear by d/c: Yes Voice need to replace compression garment every 4-6mo by dc: Yes - Rehabilitation General Assessment: pt demo with LE lymphedema stage III due to size and LE seeping. Pt would benefit from skilled OT services 2-3 visits to ed. pt on lymphedema mtg. skin care, compression alternatives. Today pt was ed. on lymphedema, ex, skin care and compression alternatives. pt given handouts and agree to POC Rehabilitation Potential: Fair - Anticipated Interventions Anticipated Interventions: Education re Diagnosis, Manual Lymph Drainage, Education re Life-long lymphedema Management, Education re Self-Bandaging Techniques, Education re Skin Care and Precautions, Education re Self Massage Techniques, Home Program - Visit Plan Frequency: Every Other Week Duration: 2 Weeks TEXT: Thank you for the opportunity to evaluate your patient. For Medicare and Medicare HMO plans, please review the plan of care and approve it. It will need to be FAXED BACK to us at [phone] for Medicare purposes. Please let me know if there are questions or concerns regarding this plan of care. Physician Chrystal mix: Date:
--- NOTE | 2019-08-03 12:27 | HP.OT.NRP ---
HP - Discharge Summary - Patient Information JEANNA SPARKS was seen in my office for initial evaluation on 07/03/19. The following Plan of Care was established for this patient: Initial Frequency: Every Other Week Initial Duration: 2 Weeks - Anticipated Interventions Anticipated Interventions: Education re Diagnosis, Manual Lymph Drainage, Education re Life-long lymphedema Management, Education re Self-Bandaging Techniques, Education re Skin Care and Precautions, Education re Self Massage Techniques, Home Program This patient was last seen in our office 07/03/19. Pertinent comments regarding their Occupational therapy will appear below: pt seen for eval only- pt did not schedule further apts. due to time lapse in care pt d/c. At this point I will be discontinuing this patient from occupational therapy. I would be happy to see this patient again in the future if found appropriate by the physician. Thank you! Madeleine Herrera, OTR/L, CHT
== END 2019-07-03 19:00 | disposition home or self-care (01) ==
LOC: OT 09:06
PROVIDERS: Family Provider Family Medicine; PCP Family Medicine; Referring Provider Nurse Practitioner; Visit Provider Nurse Practitioner
DX: I89.0 Lymphedema, not elsewhere classified (principal)
CPT/HCPCS: 97110; 97166; 97530

== ENCOUNTER 2019-07-25 00:19 | Emergency (ER) | payer BC, SELFPAY ==
[2019-07-25 00:20] VITALS: BP 131/68; PULSE 74; RESP 16; TEMP 36.7; O2SAT 95; BMI 47.4
--- NOTE | 2019-07-25 00:52 | ED.VIS.GEN ---
History of Present Illness Chief Complaint: Wound Check Narrative: Patient is a 64-year-old male who presents with a rash to both of his feet. He does have a history of lymphedema. He is developed some blistering and redness over about 2 weeks. He has been seen by an urgent care and his primary care physician as well as his neuro oncologist. He was started on Keflex and also recently had Bactrim added on. Family actually notes that the rash is improved. He has no systemic symptoms such as fevers chest pain shortness of breath nausea vomiting. The posted a picture online on [employer] and some friends had told them they should go to the ER to be checked. The family was also reading online that this could be a symptom of congestive heart failure. Past Medical History - Allergies and Home Meds Allergies/Adverse Reactions: Allergies ciprofloxacin [From Cipro] Adverse Reaction (Verified 07/25/19 00:26) Itching Primary Care Physician: Efrain Mccartney MD [Primary Care Provider] - Past Medical History: - - Diabetes, lymphedema Surgical History: tonsillectomy Smoking Status: Never smoker - Family History Maternal Family History: Reports: No pertinent history Review of Systems All systems negative except as indicated General: Denies: Fever Cardiovascular: Denies: Chest pain Respiratory: Denies: Dyspnea Gastrointestinal: Denies: Nausea, Vomiting, Diarrhea Musculoskeletal: Denies: Myalgias, Arthralgias Skin: Reports: Rash Neurological: Denies: Headache Physical Exam Vital Signs/Narrative: Vital Signs Temp Pulse Resp BP Pulse Ox 07/25/19 00:20 98.0 F 74 16 131/68 H 95 Inital Vital Signs reviewed: Yes General: Well nourished, Well developed Head: Normocephalic Eyes: EOMI ENT: Moist mucous membranes Neck: Supple Cardiovascular: Regular rate, Regular rhythm Respiratory: No distress, CTA bilaterally Abdomen: Soft, Nontender Extremities: - - Bilateral lymphedema, blisters on the top of the bilateral feet with some surrounding erythema and cellulitis no streaking no open wounds, palpable bilateral dorsalis pedis pulses Skin: Normal color Neurological: Alert Psychological: Normal affect Diagnostic/Tx/Re-eval - Medical Decision Making Patient and family actually note that the rash is improving. Family showed me a picture of the rash from earlier today and the cellulitis does appear to be improving. I explained to the patient that he has known lymphedema which is examination is consistent with and he does not have any other symptoms to suggest congestive heart failure at this time. I advised that they continue the current course of treatment and follow-up as an outpatient but they were instructed on specific signs and symptoms to monitor for which should prompt return here to the emergency department for reevaluation. ED Disposition - Plan for ED Patient: Disposition: Home or Assisted Living Diagnosis: Visit for wound check, Cellulitis Instructions: Cellulitis Referrals: Efrain Mccartney MD [Primary Care Provider] -
[2019-07-25 01:09] VITALS: BP 147/89; PULSE 69; RESP 16; O2SAT 94
== END 2019-07-25 01:12 | disposition home or self-care (01) ==
LOC: ED 00:57
PROVIDERS: Emergency Provider Emergency Medicine; Family Provider Family Medicine; PCP Family Medicine
DX: L03.116 Cellulitis of left lower limb (principal); L03.115 Cellulitis of right lower limb; E11.9 Type 2 diabetes mellitus without complications; I89.0 Lymphedema, not elsewhere classified; Z79.4 Long term (current) use of insulin
CPT/HCPCS: 99282

== ENCOUNTER 2019-08-05 09:43 | Emergency (ER) | payer BC, SELFPAY ==
--- NOTE | 2019-08-05 09:55 | ED.DCSUM_ITS ---
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 EMS was called to the house today when patient had a episode where he passed out and had potential seizure- like activity. When EMS arrived patient states he was not feeling well and he felt like he was going to . As EMS was loading patient onto the cot patient became unresponsive. EMS states that patient was in PEA as he did not have pulses. They placed an Igel. Patient received 1 amp of IO epinephrine prior to arrival. Chest compressions were performed. Past Medical History - Allergies and Home Meds Allergies/Adverse Reactions: Allergies ciprofloxacin [From Cipro] Adverse Reaction (Verified 07/25/19 00:26) Itching Primary Care Physician: Efrain Mccartney MD [Primary Care Provider] - Past Medical History: - - Glioblastoma multiform, diabetes mellitus Surgical History: tonsillectomy Smoking Status: Never smoker - Family History Maternal Family History: Reports: No pertinent history Review of Systems ROS: Unable to Obtain - Clinical illness, unresponsive Physical Exam General: Obese, - - Patient intubated with chest compressions in progress Head: Normocephalic, Atraumatic Eyes: - - Pupils unresponsive Cardiovascular: - - No Palpable pulse Respiratory: - - No spontaneous respiratory effort, bilateral breath sounds with bagging Abdomen: Soft, - - No pulsatile mass appreciated Neurological: - - Unresponsive, no spontaneous movement of the extremities - Glascow Coma Scale Eye Opening: None Motor: None Verbal: None Coma Scale Total: 3 Diagnostic/Tx/Re-eval - Medical Decision Making Patient arrives in cardiac arrest with rhythm of PEA. ACLS protocol is followed and patient is given additional epinephrine every 3 minutes. He is also given an amp of sodium bicarb. Patient had 20 minutes of downtime prior to arrival. On subsequent pulse checks in the ER patient continues to be in PEA. He has good femoral pulses with chest compressions. As patient has good lung sounds with oral airway and adequate O2 saturation, is not switched out for an endotracheal tube. Fingerstick blood glucose normal. On the final pulse check cardiac ultrasound is performed which shows no spontaneous cardiac activity. Patient continues to be in PEA. Time of was called at 0952. is at the bedside throughout ACLS and when the code was called. ED Disposition - Plan for ED Patient: Disposition: Diagnosis: Cardiopulmonary arrest Referrals: Efrain Mccartney MD [Primary Care Provider] -
--- NOTE | 2019-08-05 10:04 | CPS ---
CODE BLUE, NO INTUBATION REQUIRED IGEL PLACED PRIOR TO ARRIVAL
--- NOTE | 2019-08-05 10:05 | ED.RN ---
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 STATES THAT HE REGAINED CONSCIOUSNESS PRIOR TO EMS ARRIVAL. PER EMS, PATIENT WAS A WITNESSED ARREST AT 0925, HE INTUBATED USING AN IGEL, EZ-IO TO LEFT DISTAL TIBIA, 1 AMP EPI GIVEN PRIOR TO ARRIVAL TO ED. 0941- PATIENT ARRIVES TO ED WITH CPR IN PROGRESS. REPORT WAS GIVEN TO DR. COHEN BY EMS AND CARE WAS TRANSFERRED TO ED STAFF. CPR WAS CONTINUED. 43- PULSE CHECK BY DR. COHEN, NO PALPABLE PULSE, PEA ON MONITOR, CPR RESUMED. 44- 1 AMP EPINEPHRINE GIVEN THROUGH IO BY Brenda FISHMAN RN. 46- PULSE CHECK BY DR. COHEN, NO PALPABLE PULSE, PEA ON MONITOR, CPR RESUMED. 47- 1 AMP EPINEPHRINE GIVEN THROUGH IO BY Brenda FISHMAN RN. 0949- BGL 185 MG/DL. PULSE CHECK BY DR. COHEN, NO PALPABLE PULSE, PEA ON MONITOR, CPR RESUMED. 49- PULSE CHECK BY DR. COHEN, NO PALPABLE PULSE, PEA ON MONITOR, CPR RESUMED. 0950- 1 AMP OF BICARB GIVEN THROUGH IO BY ZACHARY RN. 1 AMP EPINEPHRINE GIVEN THROUGH IO BY Brenda FISHMAN RN. 0952-PULSE CHECK BY DR. COHEN, NO PALPABLE PULSE, PEA ON MONITOR, BEDSIDE ULTRASOUND MACHINE USED BY DR. COHEN TO ASSESS ANY CARDIAC ACTIVITY. NO CARDIAC ACTIVITY NOTED, TIME OF CALLED BY DR. COHEN @ 0954.
--- NOTE | 2019-08-05 10:20 | ED.RN ---
PATIENT RECEIVED APPROXIMATELY 700 ML OF NORMAL SALINE DURING RESUSCITATION ATTEMPT.
[2019-08-05 12:13] VITALS: TEMP -17.7; TEMP 0; BMI 50.2
[2019-08-06 16:55] LABS: Bedside Glucose 185 mg/dL (70-110)
== END 2019-08-05 12:13 ==
PROVIDERS: Emergency Provider Emergency Medicine; Family Provider Family Medicine; PCP Family Medicine
DX: I46.9 Cardiac arrest, cause unspecified (principal); E11.9 Type 2 diabetes mellitus without complications; C71.9 Malignant neoplasm of brain, unspecified; E66.9 Obesity, unspecified
CPT/HCPCS: 82962; 99281; 99282; 99291